=== PATIENT | male | born 1995 | race Caucasian/White ===

== ENCOUNTER 2021-08-21 00:09 | Emergency (ER) | payer OTHER ==
[~2021-08-21] VITALS: Ht 188 cm; Wt 70.3 kg
[2021-08-21] MEDS ORDERED: CEPHALEXIN500 MG PO (02:11)
[2021-08-21] MEDS ORDERED: HYDROCODON-ACE1 EAC7 PO (02:11)
[2021-08-21 02:17] VITALS: BP 130/84
== END 2021-08-21 02:19 | disposition home or self-care (01) ==
LOC: EDBD 00:09 → M.ERS 00:09
DX: S61.511A Laceration without foreign body of right wrist, initial encounter (principal); W26.8XXA Contact with other sharp object(s), not elsewhere classified, initial encounter; Y93.89 Activity, other specified; Y92.89 Other specified places as the place of occurrence of the external cause; Y99.8 Other external cause status